=== PATIENT | male | born 1970 | race Caucasian/White ===

== ENCOUNTER 2016-07-02 02:42 | Emergency (ER) | payer OTHER ==
--- NOTE | 2016-07-02 03:57 | ED ORDER SUMMARY ---
..... Patient: MARCE NERI OrderSheet [facility] VisitID: [id number] [place] [address] 45y, M Registration Date/Time: 07/02/2016 ORDER SHEET Weight: 117.9 kg (stated) Allergies: No Known Drug Allergy GENERAL ORDERS: Culture, Strep Screen Urgent (02:51 07/02/2016 PH DO) (Ack 2:52 AMcQuoid ER Tech1) (3:16 JBullard R.N.) Monoscreen Urgent (02:51 07/02/2016) (Ack 2:52 AMcQuoid ER Tech1) (3:16 JBullard R.N.) CBC w Diff Urgent (02:57 07/02/2016) (Ack 3:04 AMcQuoid ER Tech1) (3:16 JBullard R.N.) CMP Urgent (02:57 07/02/2016) (Ack 3:04 AMcQuoid ER Tech1) (3:16 JBullard R.N.) Amylase Urgent (02:57 07/02/2016) (Ack 3:04 AMcQuoid ER Tech1) (3:16 JBullard R.N.) Lipase Urgent (02:57 07/02/2016) (Ack 3:04 AMcQuoid ER Tech1) (3:16 JBullard R.N.) MEDICATION ORDERS: Augmentin PO 875 mg (NOW) (03:49 07/02/2016) (4:14 JBullard R.N.) Albuterol Neb Tx 1 unit dose (NOW, HHN) (04:02 07/02/2016) (4:14 JBullard R.N.) IV FLUIDS: IV NS : initial bolus 1000 mL (1000 mL/hr), then 500 mL/hr for X2 (NOW) (02:57 07/02/2016 PH) (3:17 JBullard R.N.) Toradol IV 15 mg (NOW) (02:57 07/02/2016 DO) (3:17 Patrick Howard) Zofran IV 4 mg (NOW) (02:58 07/02/2016 Víctor LEVY) (3:17 Patrick Howard) Solu-MEDROL IV 125 mg (NOW) (03:55 [facility] (4:14 Patrick Howard) ORDER SHEET NOTES: [Electronically signed by Mk Rodarte R.N. (05:18 07/02/2016)] [Electronically signed by Blake Smith DO (15:04 07/02/2016)] [Electronically locked/signed by Mk Rodarte R.N. (05:18 07/02/2016)]
--- NOTE | 2016-07-02 03:57 | ED CLINICAL REPORT ---
Clinical Report - Physicians/Mid Levels [facility] [address] [place] [address] 07/02/2016 2:44 Patient: MARCE NERI Time Seen: 02:51. Arrived- By private vehicle. Historian- patient. HISTORY OF PRESENT ILLNESS Chief Complaint: SORE THROAT. Cough. This started yesterday and is still present. It was gradual in onset and has been waxing/waning. Pain described as moderate. The patient has had a moderate sore throat with pain upon swallowing. He has been able to swallow. He has had nasal congestion. No swollen face. Similar symptoms previously: Recent medical care: Not recently seen/assessed. REVIEW OF SYSTEMS No fever, diarrhea, abdominal pain, difficulty with urination or headache. No fainting episodes, skin rash or vomiting. He has had a moderate nonproductive cough . No blood tinged sputum or frankly bloody sputum. It has been similar to previous symptoms. He has had moderate difficulty breathing at rest (pt states his asthma is acting up - his typical symptoms of asthma). The patient has also had wheezing. This has been similar to previous symptoms. He has had moderately enlarged left neck lymph nodes. All systems otherwise negative, except as recorded above. PAST HISTORY Asthma. Medications: Albuterol Sulfate Inhalation. Allergies: No Known Drug Allergy. SOCIAL HISTORY Smoker- current status unknown (cigar). Occasional alcohol use. No drug use. ADDITIONAL NOTES The nursing notes have been reviewed. PHYSICAL EXAM Vital Signs: 07/02/2016 02:54 BP: 137/72. HR: 64. RR: 15. O2 saturation: 97%. Temp: 98 F. Pain level now: 210. Appearance: Alert. Anxious. Patient in mild distress. Head: Swelling of the maxilla (left submandibular gland mild hypertrophy / swelling). Normal external inspection. Eyes: Pupils equal, round and reactive to light. Conjunctivae and eyelids normal. ENT: Nasal discharge present. Mild generalized pharyngeal erythema. No right tonsillar exudate, right tonsillar abscess, right tonsillar swelling, left tonsillar exudate, left tonsillar abscess or left tonsillar swelling. No trismus present. Uvula midline. No peritonsillar mass, muffled or hoarse voice or drooling. The mucous membranes are not dry. Neck: Normal inspection. Mild right anterior neck, mild right posterior neck and mild right submandibular and moderate left anterior neck, moderate left submandibular and mild left posterior neck lymphadenopathy present. Trachea midline. Neck supple. CVS: Normal heart rate and rhythm. Heart sounds normal. Pulses normal. Respiratory: No respiratory distress. Breath sounds normal. Abdomen: Soft and nontender. Skin: Normal skin color. No rash. Normal skin turgor. Extremities: Extremities exhibit normal ROM. Extremities nontender. Neuro: Oriented X 3. No motor deficit. LABS, X-RAYS, AND EKG Laboratory Tests: Monoscreen: (VERITO: 07/02/2016 03:05) ( [facility] [place] 03:27) Final results Test Result Flag Units (Reference) MONOSCREEN NEGATIVE (NEGATIVE) CBC w Diff: (VERITO: 07/02/2016 02:55) ( [facility] [place] 03:18) Final results Test Result Flag Units (Reference) WHITE BLOOD COUNT 4.9 K/uL (4.5-11.5) RED BLOOD COUNT 5.21 M/uL (4.50-5.90) HEMOGLOBIN 14.3 gm/dL (13.5-17.5) HEMATOCRIT 44.0 % (41.0-53.0) MEAN CELL VOLUME 84 fL (80-100) MEAN CORPUSCULAR HGB 28 pg (26-34) MEAN CORPUSCULAR HGB CONC 33 g/dL (31-37) RED CELL DISTRIBUTION WIDTH 13.3 % (11.6-14.8) PLATELET COUNT 186 K/uL (150-400) NEUTROPHIL % 52.1 % (50-75) LYMPH % 34.4 % (25-40) MONO % 10.0 % (3-14) EOSINOPHIL % 2.6 % (0-4) BASOPHIL % 0.9 % (0-2) CMP: (VERITO: 07/02/2016 02:55) ( [facility] [place] 03:30) Final results Test Result Flag Units (Reference) GLUCOSE 92 mg/dL (70-110) BUN 25 H mg/dL (7-18) CREATININE 1.0 mg/dL (0.6-1.3) Estimated GFR >60 mL/min Estimated GFR- >60 mL/min Note: Persistent reduction over 3 months in eGFR<60 mL/min/1.73 m2 defines CKD. Patients with eGFR values>=60 mL/min/1.73 m2 may also have CKD if evidence ofpersistent proteinuria. Additional information may be foundat www.kidney.org. SODIUM 141 mmol/L (136-145) POTASSIUM 4.4 mmol/L (3.5-5.1) CHLORIDE 104 mmol/L (98-107) CARBON DIOXIDE 30 mmol/L (21-32) CALCIUM 8.9 mg/dL (8.5-10.1) TOTAL PROTEIN 7.5 g/dL (6.4-8.2) ALBUMIN 3.6 g/dL (3.3-5.0) BILIRUBIN, TOTAL 0.7 mg/dL (0.0-1.0) ALKALINE PHOSPHATASE 101 U/L (46-116) AST (SGOT) 35 U/L (15-37) ALT (SGPT) 50 U/L (12-78) LIPASE 237 U/L (73-393) AMYLASE 76 U/L (25-115) Culture, Strep Screen: (VERITO: 07/02/2016 02:55) ( [facility] 07/02/2016 03:34) Final results Test Result Flag Units (Reference) RAPID STREP SCREEN - THROAT DATE: 07/02/16 NEGATIVE SCREEN: RAPID STREP SCREEN NEGATIVE; CONFIRMATION TO FOLLOW . Pulse Oximetry: 07/02/2016 02:54 O2 saturation: 97%. (FIO2 - room air). Interpretation: normal. PROGRESS AND PROCEDURES Course of Care: Albuterol nebulizer treatment given. Normal Saline 1 liter IVPB given. Toradol 15 mg IVP given. Augmentin 875 mg PO given. Zofran 4 mg IVP given. Solu-Medrol 125 mg IVP given. Submandibular / anterior cervical node swelling without fluctuance or erythema, but no parotid swelling. No stridor. Epigliglotis not visibly swollen with direct visuslization with tongue blade. Lungs clear pre and post neb. Patient/family counseled. Disposition: Discharged. Condition: stable and improved. CLINICAL IMPRESSION Mild persistent asthma with an acute exacerbation. No status asthmaticus, pneumonia or hypoxemia. Acute streptococcal pharyngitis Possible acute sialoadenitis Doubt mumps. No orchitis, meningitis, encephalitis, pancreatitis or hepatitis. INSTRUCTIONS Do not work for three days. Drink plenty of fluids. Do not smoke. Seek medical help to quit smoking. Warnings: Further evaluation is necessary in order to recheck abnormal lab and obtain test results. It is very important to follow up with a physician. GENERAL WARNINGS: Return or contact your physician immediately if your condition worsens or changes unexpectedly, if not improving as expected, or if other problems arise. Your Current Medications: CONTINUE TAKING THE FOLLOWING MEDICATIONS: Albuterol Sulfate Inhalation. Prescription Medications: Hydrocodone/APAP 5mg / 325mg: take 1-2 orally every 8 hours as needed for pain. Dispense ten (10). No refill. Albuterol HFA oral inhaler: inhale 1 to 2 puffs every four to six hours as needed for difficulty breathing. Dispense one (1) unit. No refills. (with spacer) Prednisone 20 mg: take 3 orally every day for 5 days. Dispense fifteen (15). No refills. Augmentin 875 mg: take 1 tablet orally every 12 hours for 7 days. Dispense fourteen (14). No refills. Substitution is permissible. OTC Medications: Acetaminophen (available over the counter): take according to label instructions. Motrin (available over the counter): take according to label instructions. Follow-up: Follow up with your doctor in about three days. Follow-up with: Elvin Jung MD, ENT, , [facility], [address] [place] [address], [id number] Follow up in about three days if not better. (Electronically signed by Blake Smith DO 07/02/2016 15:04)
--- NOTE | 2016-07-02 03:57 | ED ORDER SUMMARY ---
..... Patient: MARCE NERI OrderSheet [facility] VisitID: [id number] [place] [address] 45y, M Registration Date/Time: 07/02/2016 ORDER SHEET Weight: 117.9 kg (stated) Allergies: No Known Drug Allergy GENERAL ORDERS: Culture, Strep Screen Urgent (02:51 07/02/2016 PH DO) (Ack 2:52 AMcQuoid ER Tech1) (3:16 JBullard R.N.) Monoscreen Urgent (02:51 07/02/2016) (Ack 2:52 AMcQuoid ER Tech1) (3:16 JBullard R.N.) CBC w Diff Urgent (02:57 07/02/2016) (Ack 3:04 AMcQuoid ER Tech1) (3:16 JBullard R.N.) CMP Urgent (02:57 07/02/2016) (Ack 3:04 AMcQuoid ER Tech1) (3:16 JBullard R.N.) Amylase Urgent (02:57 07/02/2016) (Ack 3:04 AMcQuoid ER Tech1) (3:16 JBullard R.N.) Lipase Urgent (02:57 07/02/2016) (Ack 3:04 AMcQuoid ER Tech1) (3:16 JBullard R.N.) MEDICATION ORDERS: Augmentin PO 875 mg (NOW) (03:49 07/02/2016) (4:14 JBullard R.N.) Albuterol Neb Tx 1 unit dose (NOW, HHN) (04:02 07/02/2016) (4:14 JBullard R.N.) IV FLUIDS: IV NS : initial bolus 1000 mL (1000 mL/hr), then 500 mL/hr for X2 (NOW) (02:57 07/02/2016 PH) (3:17 JBullard R.N.) Toradol IV 15 mg (NOW) (02:57 07/02/2016 DO) (3:17 Patrick Howard) Zofran IV 4 mg (NOW) (02:58 07/02/2016 Víctor LEVY) (3:17 Patrick Howard) Solu-MEDROL IV 125 mg (NOW) (03:55 07/02/2016 [facility] ) (4:14 Patrick Howard) ORDER SHEET NOTES: [Electronically signed by Mk Rodarte R.N. (05:18 07/02/2016)] [Electronically signed by Blake Smith DO (15:04 07/02/2016)] [Electronically locked/signed by Mk Rodarte R.N. (05:18 07/02/2016)]
--- NOTE | 2016-07-02 03:57 | ED NURSING NOTES ---
Clinical Report - Nurses [facility] [address] [place] [address] 07/02/2016 2:44 Patient: MARCE NERI TRIAGE Triage time 02:54. Acuity: LEVEL 4. Chief Complaint: (swollen gland on left side of neck, sore throat). Alert. No acute distress. --02:59 Laura Jay R.N. 02:54 07/02/16. BP: 137/72. HR: 64. RR: 15. O2 saturation: 97%. Temp: 98 F (oral). Pain level now: 08/07. --02:59 Laura Jay R.N. Weight: 117.9 kg stated. Height/Length: 70 inches Per Patient. BMI: 37.3. --02:55 Laura Jay R.N. Medications Albuterol Sulfate Inhalation. --02:55 Laura Jay R.N. Allergies No Known Drug Allergy. --02:55 Laura Jay R.N. History Arrived by private vehicle. Historian: patient. Onset. (about 2 days ago). PAST MEDICAL HX: Immunizations: up-to-date. SOCIAL HX: Smoker- current status unknown (cigar). Occasional alcohol use. No drug use. NUTRITIONAL RISK ASSESSMENT: The nutritional risk assessment revealed no deficiencies. FUNCTIONAL ASSESSMENT: Functional assessment: no impairments noted. --02:59 Laura Jay R.N. PROBLEMS: Asthma. --02:56 Laura Jay R.N. ADDITIONAL SURGERIES: Knee Surgery. --02:56 Laura Jay R.N. Interventions ID band on patient. To treatment room. --02:59 Laura Jay R.N. PHYSICAL ASSESSMENT Ambulatory to room. GENERAL / NEURO / PSYCH: Alert. Oriented X 4. Appears in no acute distress. HEENT: Mucous membranes are pink. RESPIRATORY: Respirations not labored. CVS: Capillary refill less than 2 seconds. SKIN: Skin is warm and dry. --02:59 Laura Jay R.N. NURSING PROGRESS NOTES Head of bed elevated. Two patient identifiers checked. Call light placed in reach. Side rails up x 1. Bed placed in lowest position. Brakes of bed on. --02:59 Laura Jay R.N. Patient ready for evaluation- chart flagged. --02:59 Laura Jay R.N. The initial plan of care for this patient has been created This plan of care was discussed with the patient. --02:59 Laura Jay R.N. 03:17 07/02/2016 Site #1 started via IV in the left forearm with an 18g angiocath, with aseptic technique and good blood return; two attempts. Blood drawn: rainbow set. Labeled in the presence of the patient and sent to the lab. Saline lock flushed with saline. --03:17 Mk Rodarte R.N. 03:17 07/02/2016 Zofran (Ondansetron HCl) IVP 4 mg given. via site #1. Allergies verified and confirmed 5 rights. IV patency established. IV site checked: no pain, redness, or swelling. IV flushed thoroughly pre- and post-medication administration. --03:17 Mk Rodarte R.N. 03:17 07/02/2016 Toradol IVP 15 mg given. via site #1. Allergies verified and confirmed 5 rights. IV patency established. IV site checked: no pain, redness, or swelling. IV flushed thoroughly pre- and post-medication administration. --03:17 Mk Rodarte R.N. 03:17 07/02/2016 Started bag #1 1000 mL IV Fluids IV NS (Saline); bolus of 1000 mL wide open via site #1. Allergies verified and confirmed 5 rights. IV patency established. IV site checked: no pain, redness, or swelling. IV flushed thoroughly pre- and post-medication administration. --03:17 Mk Rodarte R.N. 04:14 07/02/2016 Augmentin (Amoxicillin-Pot Clavulanate) PO Tablets 875 mg given. Allergies verified and confirmed 5 rights. --04:14 Mk Rodarte R.N. 04:14 07/02/2016 SOLU-MEDROL (MethylPREDNISolone Sodium Succ) IVP 125 mg given. via site #1. Allergies verified and confirmed 5 rights. IV patency established. IV site checked: no pain, redness, or swelling. IV flushed thoroughly pre- and post-medication administration. --04:14 Mk Rodarte R.N. 04:14 07/02/2016 Albuterol Neb TX 1 unit dose given. Given by the nurse. Allergies verified and confirmed 5 rights. --04:14 Mk Rodarte R.N. DISPOSITION / DISCHARGE 04:52 07/02/2016 Site #1 removed upon discharge. Pressure dressing applied. --05:17 Mk Rodarte R.N. Departure time: 0500. Condition at departure: improved. No learning barriers present. Discharge instructions provided and reviewed with the patient. Reviewed warnings. Reviewed medication(s). Treatments reviewed. Activity restrictions reviewed. Work note given. Patient verbalized understanding. Written instructions provided in Congolese. The patient was discharged by the physician. He was discharged home and unaccompanied at time of discharge. He left the Emergency Department ambulatory and via private vehicle. Patient driving. FALL RISK ASSESSMENT: Fall risk assessment completed. No fall risk identified. --05:18 Mk Rodarte R.N. 05:17 07/02/16. BP: 130/75. HR: 88. RR: 16. O2 saturation: 98%. Temp: 98 F. Pain level now 0/10. --05:18 Mk Rodarte R.N. Locked/Released at 07/02/2016 5:18 by Mk Rodarte R.N.
--- NOTE | 2016-07-02 15:05 | ED DISCHARGE INSTRUCTIONS ---
Patient: MARCE NERI [facility] VisitID: [id number] [place] [address] 45y, M Registration Date/Time: 07/02/2016 Mild persistent asthma with an acute exacerbation. No status asthmaticus, pneumonia or hypoxemia. Acute streptococcal pharyngitis INSTRUCTIONS Do not work for three days. Drink plenty of fluids. Do not smoke. Seek medical help to quit smoking. Warnings: Further evaluation is necessary in order to recheck abnormal lab and obtain test results. It is very important to follow up with a physician. GENERAL WARNINGS: Return or contact your physician immediately if your condition worsens or changes unexpectedly, if not improving as expected, or if other problems arise. Your Current Medications: CONTINUE TAKING THE FOLLOWING MEDICATIONS: Albuterol Sulfate Inhalation. Prescription Medications: Hydrocodone/APAP 5mg / 325mg: take 1-2 orally every 8 hours as needed for pain. Dispense ten (10). No refill. Albuterol HFA oral inhaler: inhale 1 to 2 puffs every four to six hours as needed for difficulty breathing. Dispense one (1) unit. No refills. (with spacer) Prednisone 20 mg: take 3 orally every day for 5 days. Dispense fifteen (15). No refills. Augmentin 875 mg: take 1 tablet orally every 12 hours for 7 days. Dispense fourteen (14). No refills. Substitution is permissible. OTC Medications: Acetaminophen (available over the counter): take according to label instructions. Motrin (available over the counter): take according to label instructions. Follow-up: Follow up with your doctor in about three days. Follow-up with: Elvin Jung MD, ENT, , [facility], [address] [place] [address], [facility], [id number] Follow up in about three days if not better. ADDITIONAL INFORMATION Pharyngitis (Sore Throat),Report Pending Pharyngitis (sore throat) is often due to a virus, but can also be caused by thestrepbacteria. This is calledstrep throat. Both viral and strep infection can cause throat pain that is worse when swallowing, aching all over with headache and fever. Both types of infections are contagious. They may be spread by coughing, kissing or touching others after touching your mouth or nose. A test has been done to determine whether or not you have strep throat. Call this facility as directed for the result. If it is positive for strep infection you will need to take antibiotics. A prescription can be called in to your pharmacy at that time. If the test is negative, you probably have a viral pharyngitis and it will not require antibiotic treatment. Home Care: If your symptoms are severe, rest at home for the first 2-3 days. If you are told that your test is positive for strep, you should be off work and school for the first two days of antibiotic treatment. After that, you will no longer be contagious. Children: Use acetaminophen (Tylenol) for fever, fussiness or discomfort. In infants over six months of age, you may use ibuprofen (Children's Motrin) instead of Tylenol. [NOTE: If your child has chronic liver or kidney disease or ever had a stomach ulcer or GI bleeding, talk with your doctor before using these medicines.] (Aspirin should never be used in anyone under 18 years of age who is ill with a fever. It may cause severe liver damage.)Adults: You may use acetaminophen (Tylenol) or ibuprofen (Motrin, Advil) to control pain or fever, unless another medicine was prescribed for this. [NOTE: If you have chronic liver or kidney disease or ever had a stomach ulcer or GI bleeding, talk with your doctor before using these medicines.] Throat lozenges or sprays (Chloraseptic and others), or gargling with warm salt water will reduce throat pain. Dissolve 1/2 teaspoon of salt in 1 glass of warm water. This is especially useful just before meals. Follow Up with your doctor as advised by our staff if you are not improving over the next week. Get Prompt Medical Attention if any of the following occur: Fever of 100.4F (38C) oral or higher, not better with fever medication New or worsening ear pain, sinus pain or headache Painful lumps in the back of your neck Unable to swallow liquids or open your mouth wide due to throat pain Trouble breathing or noisy breathing Muffled voice New rash Salivary Gland Infection Salivary glands make saliva in response to food in your mouth. Saliva is mostly water, but also has minerals and proteins that help break down food and keep the mouth and teeth healthy. There are three pairs of salivary glands: Parotid glands (in front of the ear) Submandibular glands (below the jaw) Sublingual glands (below the tongue) Each gland has a duct (channel) that allows saliva to flow from the gland into the mouth. The salivary gland can become infected as a result of the salivary duct being blocked. This blockage may be due to a stone, narrowing of the duct, or poor salivary flow due to dehydration. Chronic illness or certain medications can also increase the risk of infection. A blocked salivary gland is at risk of infection. This causes severe pain in the gland with redness in the skin over the gland. The gland is tender to the touch and there may be fever. Symptoms are worse during eating since food stimulates the flow of saliva. Even the smell or thought of food can cause symptoms to appear. Diagnosis of a salivary gland blockage with infection requires an X-ray, CT-scan, ultrasound or injection of dye into the salivary duct. If a stone is discovered, it may be removed by massage of the duct, or a procedure to remove the stone manually. Antibiotics are used to treat the infection. Sometimes it is necessary to drain the infection with a small surgical procedure. Home Care: Drink 6-8 glasses of fluid per day (water, juices, tea, soup, etc.) to keep well-hydrated. If you smoke, quit smoking. Maintain good dental hygiene: Spring your teeth, floss, and use mouthwash. If it is determined that no stone is present, but you have gland swelling during meals, there may be sludge blocking the duct, or the duct may be narrowed. Gently massaging the gland and sucking on lemon drops after a meal may help reduce the symptoms. Take antibiotics as directed until you have finished them all, even if you are feeling better after only a few days. Follow Up with your doctor or as advised by our staff. Get Prompt Medical Attention if any of the following occur: Increasing pain or swelling in the gland Fever over 100.5F (38.0C) that persists after two days of antibiotics Increasing redness over the gland Asthma [Adult] Asthma is a disease where the small air passages within the lung go into spasm and restrict the flow of air. Inflammation and swelling of the airways cause further restriction. During an acute asthma attack, these factors cause difficulty breathing, wheezing, cough and chest tightness. An asthma attack can be triggered by many things. Common triggers include the common cold, bronchitis, pneumonia, irritants such as smoke or pullutants in the air, emotional upset and heavy exercise. Inmany adults with asthma, allergies todust, mold, pollen and animal dander can cause an asthma attack. Skipping doses of daily asthma medicine can also bring on an asthma attack. Asthma can be controlled with proper medicines and decreased exposure to known allergens. Home Care: Take prescribed medicine exactly at the times advised. If you have a hand-held inhaler or aerosol breathing medicine, do not use it more than once every four hours, unless told to do so. (If you need this medicine more than every four hours, you may need to return to the Emergency Room.) If prescribed an antibiotic or prednisone, take all of the medicine even if you are feeling better after a few days. Do not smoke. Avoid being exposed to the smoke of others. Some persons with asthma have worsening of their symptoms when they take aspirin and non-steroidal medicines like ibuprofen (Motrin, Advil) and naproxen (Aleve, Naprosyn). Talk to your doctor if you think this may apply to you. Acetaminophen (Tylenol)should be safe to use. Follow Up with your doctor, or as advised by our staff. Always bring all of your current medicines with you for your doctor to see. If you do not already have one, talk to your doctor about developing a personalized "Asthma Action Plan." [NOTE: A pneumococcal vaccine and yearly flu shot (every fall) are recommended. Ask your doctor about this.] Get Prompt Medical Attention if any of the following occur: Increased wheezing or shortness of breath Need to use your inhalers more often than usual without relief Fever of 100.4F (38C) or higher, or as directed by your healthcare provider Coughing up lots of dark-colored or bloody sputum (mucus) Chest pain with each breath You do not start to improve within 24 hours Call 911 If Any Of The Following Occur : Trouble walking or talking because of shortness of breath If you use a peak flow meter andyou are still in the red zone (less than 50 percent) 15 minutes after using inhaler medication Lips or fingernails turning lewis or blue How To Quit Smoking Smoking is one of the hardest habits to break. About half of all those who have ever smoked have been able to quit, and most of those (about 70%) who still smoke want to quit. Here are some of the best ways to stop smoking. Keep Trying: It takes most smokers about 8 tries before they are finally able to fully quit. So, the more often you try and fail, the better your chance of quitting the next time! So, don't give up! Go Cold [place]: Most ex-smokers quit cold turkey. Trying to cut back gradually doesn't seem to work as well, perhaps because it continues the smoking habit. Also, it is possible to fool yourself by inhaling more while smoking fewer cigarettes. This results in the same amount of nicotine in your body! Get Support: Support programs can make an important difference, especially for the heavy smoker. These groups offer lectures, methods to change your behavior and peer support. Call the free national Quitline for more information. 408-SEBJ-DXW (303-079-9765). Low-cost or free programs are offered by many hospitals, local chapters of the [employer] (003-343-3093) and the [employer] (423-608-8029). Support at home is important too. Non-smokers can help by offering praise and encouragement. If the smoker fails to quit, encourage them to try again! Nkwg-Spb-Qznforl Medicines: For those who can't quit on their own, Nicotine Replacement Therapy (NRT) may make quitting much easier. Certain aids such as the nicotine patch, gum and lozenge are available without a prescription. However, it is best to use these under the guidance of your doctor. The skin patch provides a steady supply of nicotine to the body. Nicotine gum and lozenge gives temporary bursts of low levels of nicotine. Both methods take the edge off the craving for cigarettes. WARNING: If you feel symptoms of nicotine overdose, such as nausea, vomiting, dizziness, weakness, or fast heartbeat, stop using these and see your doctor. Prescription Medicines: After evaluating your smoking patterns and prior attempts at quitting, your doctor may offer a prescription medicine such as bupropion (Zyban, Wellbutrin), varenicline (Chantix, Champix), a niocotine inhaler or nasal spray. Each has its unique advantage and side effects which your doctor can review with you. Health Benefits Of Quitting: The benefits of quitting start right away and keep improving the longer you go without smokin minutes: blood pressure and pulse return to normal 8 hours: oxygen levels return to normal 2 days: ability to smell and taste begins to improve as damaged nerves start to regrow 2-3 weeks: circulation and lung function improves 1-9 months: decreased cough, congestion and shortness of breath; less tired 1 year: risk of heart attack decreases by half 5 years: risk of lung cancer decreases by half; risk of stroke becomes the same as a non-smoker For information about how to quit smoking, visit the following links: [employer] [place] , Clearing the Air, Quit Smoking Today - an online booklet. http://www.smokefree.gov/pubs/clearing_the_air.pdf Smokefree.gov http://smokefree.gov/ QuitNet http://www.quitnet.com/ Hydrocodone Bitartrate, Acetaminophen Oral tablet What is this medicine? ACETAMINOPHEN; HYDROCODONE (a set a WILDER chhaya fen; dereck droe KOE done) is a pain reliever. It is used to treat mild to moderate pain. How should I use this medicine? Take this medicine by mouth. Swallow it with a full glass of water. Follow the directions on the prescription label. If the medicine upsets your stomach, take the medicine with food or milk. Do not take more than you are told to take. Talk to your general utility machine operator regarding the use of this medicine in children. This medicine is not approved for use in children. What side effects may I notice from receiving this medicine? Side effects that you should report to your doctor or health critical care unit nurse as soon as possible: allergic reactions like skin rash, itching or hives, swelling of the face, lips, or tongue breathing problems confusion feeling faint or lightheaded, falls stomach pain yellowing of the eyes or skin Side effects that usually do not require medical attention (report to your doctor or health critical care unit nurse if they continue or are bothersome): nausea, vomiting stomach upset What may interact with this medicine? alcohol antihistamines isoniazid medicines for depression, anxiety, or psychotic disturbances medicines for sleep muscle relaxants naltrexone narcotic medicines (opiates) for pain phenobarbital ritonavir tramadol What if I miss a dose? If you miss a dose, take it as soon as you can. If it is almost time for your next dose, take only that dose. Do not take double or extra doses. Where should I keep my medicine? Keep out of the reach of children. This medicine can be abused. Keep your medicine in a safe place to protect it from theft. Do not share this medicine with anyone. Selling or giving away this medicine is dangerous and against the law. Store at room temperature between 15 and 30 degrees C (59 and 86 degrees F). Protect from light. Keep container tightly closed. Throw away any unused medicine after the expiration date. Discard unused medicine and used packaging carefully. Pets and children can be harmed if they find used or lost packages. What should I tell my health care provider before I take this medicine? They need to know if you have any of these conditions: brain tumor Crohn's disease, inflammatory bowel disease, or ulcerative colitis drink more than 3 alcohol-containing drinks per day drug abuse or addiction head injury heart or circulation problems kidney disease or problems going to the bathroom liver disease lung disease, asthma, or breathing problems an unusual or allergic reaction to acetaminophen, hydrocodone, other opioid analgesics, other medicines, foods, dyes, or preservatives or trying to get breast-feeding What should I watch for while using this medicine? Tell your doctor or health critical care unit nurse if your pain does not go away, if it gets worse, or if you have new or a different type of pain. You may develop tolerance to the medicine. Tolerance means that you will need a higher dose of the medicine for pain relief. Tolerance is normal and is expected if you take the medicine for a long time. Do not suddenly stop taking your medicine because you may develop a severe reaction. Your body becomes used to the medicine. This does NOT mean you are addicted. Addiction is a behavior related to getting and using a drug for a non-medical reason. If you have pain, you have a medical reason to take pain medicine. Your doctor will tell you how much medicine to take. If your doctor wants you to stop the medicine, the dose will be slowly lowered over time to avoid any side effects. You may get drowsy or dizzy when you first start taking the medicine or change doses. Do not drive, use machinery, or do anything that may be dangerous until you know how the medicine affects you. Stand or sit up slowly. There are different types of narcotic medicines (opiates) for pain. If you take more than one type at the same time, you may have more side effects. Give your health care provider a list of all medicines you use. Your doctor will tell you how much medicine to take. Do not take more medicine than directed. Call emergency for help if you have problems breathing. The medicine will cause constipation. Try to have a bowel movement at least every 2 to 3 days. If you do not have a bowel movement for 3 days, call your doctor or health critical care unit nurse. Too much acetaminophen can be very dangerous. Do not take Tylenol (acetaminophen) or medicines that contain acetaminophen with this medicine. Many non-prescription medicines contain acetaminophen. Always read the labels carefully. Albuterol Sulfate Pressurized inhalation, suspension What is this medicine? ALBUTEROL (al BYOO ter ole) is a bronchodilator. It helps open up the airways in your lungs to make it easier to breathe. This medicine is used to treat and to prevent bronchospasm. How should I use this medicine? This medicine is for inhalation through the mouth. Follow the directions on your prescription label. Take your medicine at regular intervals. Do not use more often than directed. Make sure that you are using your inhaler correctly. Ask you doctor or health care provider if you have any questions. Talk to your general utility machine operator regarding the use of this medicine in children. Special care may be needed. What side effects may I notice from receiving this medicine? Side effects that you should report to your doctor or health critical care unit nurse as soon as possible: allergic reactions like skin rash, itching or hives, swelling of the face, lips, or tongue breathing problems chest pain feeling faint or lightheaded, falls high blood pressure irregular heartbeat fever muscle cramps or weakness pain, tingling, numbness in the hands or feet vomiting Side effects that usually do not require medical attention (report to your doctor or health critical care unit nurse if they continue or are bothersome): cough difficulty sleeping headache nervousness or trembling stomach upset stuffy or runny nose throat irritation unusual taste What may interact with this medicine? anti-infectives like chloroquine and pentamidine caffeine cisapride diuretics medicines for colds medicines for depression or for emotional or psychotic conditions medicines for weight loss including some herbal products methadone some antibiotics like clarithromycin, erythromycin, levofloxacin, and linezolid some heart medicines steroid hormones like dexamethasone, cortisone, hydrocortisone theophylline thyroid hormones What if I miss a dose? If you miss a dose, use it as soon as you can. If it is almost time for your next dose, use only that dose. Do not use double or extra doses. Where should I keep my medicine? Keep out of the reach of children. Store at room temperature between 15 and 30 degrees C (59 and 86 degrees F). The contents are under pressure and may burst when exposed to heat or flame. Do not freeze. This medicine does not work as well if it is too cold. Throw away any unused medicine after the expiration date. Inhalers need to be thrown away after the labeled number of puffs have been used or by the expiration date; whichever comes first. Ventolin HFA should be thrown away 12 months after removing from foil pouch. Check the instructions that come with your medicine. What should I tell my health care provider before I take this medicine? They need to know if you have any of the following conditions: diabetes heart disease or irregular heartbeat high blood pressure pheochromocytoma seizures thyroid disease an unusual or allergic reaction to albuterol, levalbuterol, sulfites, other medicines, foods, dyes, or preservatives or trying to get breast-feeding What should I watch for while using this medicine? Tell your doctor or health critical care unit nurse if your symptoms do not improve. Do not use extra albuterol. If your asthma or bronchitis gets worse while you are using this medicine, call your doctor right away. If your mouth gets dry try chewing sugarless gum or sucking hard candy. Drink water as directed. Prednisone Oral tablet What is this medicine? PREDNISONE (PRED ni sone) is a corticosteroid. It is commonly used to treat inflammation of the skin, joints, lungs, and other organs. Common conditions treated include asthma, allergies, and arthritis. It is also used for other conditions, such as blood disorders and diseases of the adrenal glands. How should I use this medicine? Take this medicine by mouth with a glass of water. Follow the directions on the prescription label. Take this medicine with food. If you are taking this medicine once a day, take it in the morning. Do not take more medicine than you are told to take. Do not suddenly stop taking your medicine because you may develop a severe reaction. Your doctor will tell you how much medicine to take. If your doctor wants you to stop the medicine, the dose may be slowly lowered over time to avoid any side effects. Talk to your general utility machine operator regarding the use of this medicine in children. Special care may be needed. What side effects may I notice from receiving this medicine? Side effects that you should report to your doctor or health critical care unit nurse as soon as possible: allergic reactions like skin rash, itching or hives, swelling of the face, lips, or tongue changes in emotions or moods changes in vision depressed mood eye pain fever or chills, cough, sore throat, pain or difficulty passing urine increased thirst swelling of ankles, feet Side effects that usually do not require medical attention (report to your doctor or health critical care unit nurse if they continue or are bothersome): confusion, excitement, restlessness headache nausea, vomiting skin problems, acne, thin and shiny skin trouble sleeping weight gain What may interact with this medicine? Do not take this medicine with any of the following medications: metyrapone mifepristone This medicine may also interact with the following medications: aminoglutethimide amphotericin B aspirin and aspirin-like medicines barbiturates certain medicines for diabetes, like glipizide or glyburide cholestyramine cholinesterase inhibitors cyclosporine digoxin diuretics ephedrine female hormones, like estrogens and control pills isoniazid ketoconazole NSAIDS, medicines for pain and inflammation, like ibuprofen or naproxen phenytoin rifampin toxoids vaccines warfarin What if I miss a dose? If you miss a dose, take it as soon as you can. If it is almost time for your next dose, talk to your doctor or health critical care unit nurse. You may need to miss a dose or take an extra dose. Do not take double or extra doses without advice. Where should I keep my medicine? Keep out of the reach of children. Store at room temperature between 15 and 30 degrees C (59 and 86 degrees F). Protect from light. Keep container tightly closed. Throw away any unused medicine after the expiration date. What should I tell my health care provider before I take this medicine? They need to know if you have any of these conditions: Denilson's syndrome diabetes glaucoma heart disease high blood pressure infection (especially a virus infection such as chickenpox, cold sores, or herpes) kidney disease liver disease mental illness myasthenia gravis osteoporosis seizures stomach or intestine problems thyroid disease an unusual or allergic reaction to lactose, prednisone, other medicines, foods, dyes, or preservatives or trying to get breast-feeding What should I watch for while using this medicine? Visit your doctor or health critical care unit nurse for regular checks on your progress. If you are taking this medicine over a prolonged period, carry an identification card with your name and address, the type and dose of your medicine, and your doctor's name and address. This medicine may increase your risk of getting an infection. Tell your doctor or health critical care unit nurse if you are around anyone with measles or chickenpox, or if you develop sores or blisters that do not heal properly. If you are going to have surgery, tell your doctor or health critical care unit nurse that you have taken this medicine within the last twelve months. Ask your doctor or health critical care unit nurse about your diet. You may need to lower the amount of salt you eat. This medicine may affect blood sugar levels. If you have diabetes, check with your doctor or health critical care unit nurse before you change your diet or the dose of your diabetic medicine. Amoxicillin Trihydrate, Clavulanate Potassium Oral tablet What is this medicine? AMOXICILLIN; CLAVULANIC ACID (a mox i RENITA in; CHERYL chance ic id) is a penicillin antibiotic. It is used to treat certain kinds of bacterial infections. It will not work for colds, flu, or other viral infections. How should I use this medicine? Take this medicine by mouth with a full glass of water. Follow the directions on the prescription label. Take at the start of a meal. Do not crush or chew. If the tablet has a score line, you may cut it in half at the score line for easier swallowing. Take your medicine at regular intervals. Do not take your medicine more often than directed. Take all of your medicine as directed even if you think you are better. Do not skip doses or stop your medicine early. Talk to your general utility machine operator regarding the use of this medicine in children. Special care may be needed. What side effects may I notice from receiving this medicine? Side effects that you should report to your doctor or health critical care unit nurse as soon as possible: allergic reactions like skin rash, itching or hives, swelling of the face, lips, or tongue breathing problems dark urine fever or chills, sore throat redness, blistering, peeling or loosening of the skin, including inside the mouth seizures trouble passing urine or change in the amount of urine unusual bleeding, bruising unusually weak or tired white patches or sores in the mouth or throat Side effects that usually do not require medical attention (report to your doctor or health critical care unit nurse if they continue or are bothersome): diarrhea dizziness headache nausea, vomiting stomach upset vaginal or anal irritation What may interact with this medicine? allopurinol anticoagulants control pills methotrexate probenecid What if I miss a dose? If you miss a dose, take it as soon as you can. If it is almost time for your next dose, take only that dose. Do not take double or extra doses. Where should I keep my medicine? Keep out of the reach of children. Store at room temperature below 25 degrees C (77 degrees F). Keep container tightly closed. Throw away any unused medicine after the expiration date. What should I tell my health care provider before I take this medicine? They need to know if you have any of these conditions: bowel disease, like colitis kidney disease liver disease mononucleosis an unusual or allergic reaction to amoxicillin, penicillin, cephalosporin, other antibiotics, clavulanic acid, other medicines, foods, dyes, or preservatives or trying to get breast-feeding What should I watch for while using this medicine? Tell your doctor or health critical care unit nurse if your symptoms do not improve. Do not treat diarrhea with over the counter products. Contact your doctor if you have diarrhea that lasts more than 2 days or if it is severe and watery. If you have diabetes, you may get a false-positive result for sugar in your urine. Check with your doctor or health critical care unit nurse. control pills may not work properly while you are taking this medicine. Talk to your doctor about using an extra method of control. You have been given the following additional information: Pharyngitis, Report Pending Salivary Gland Infection Asthma, Acute (Adult) Smoking Cessation Hydrocodone Bitartrate, Acetaminophen Oral tablet Albuterol Sulfate Pressurized inhalation, suspension Prednisone Oral tablet Amoxicillin Trihydrate, Clavulanate Potassium Oral tablet Do not work for three days. (Electronically signed by Blake Smith DO 07/02/2016 15:04)
--- NOTE | 2016-07-02 15:05 | ED MAR SUMMARY ---
..... Medication Administration Record [facility] [address] [place] [address] Patient: MARCE NERI Visit ID: [id number] 45y, M Weight: 117.9 kg Height/Length: 70 in BMI: 37.3 ALLERGIES: No Known Drug Allergy Start 03:07/02/2016 Mk Rodarte R.N. Medication Administered: IV NS (SALINE), Dose: IV Fluids, Bolus: 1000 mL wide open, Dispensed: 1000 mL bag, Site: #1 left forearm. Medication Ordered: IV NS : initial bolus 1000 mL (1000 mL/hr), then 500 mL/hr for X2 (NOW). Given 03:07/02/2016 Mk Rodarte R.N. Medication Administered: TORADOL [IVP], Dose: 15 mg IVP, Site: #1 left forearm. Medication Ordered: Toradol IV 15 mg (NOW). Given 03:07/02/2016 Mk Rodarte R.N. Medication Administered: ZOFRAN [IVP] (ONDANSETRON HCL), Dose: 4 mg IVP, Site: #1 left forearm. Medication Ordered: Zofran IV 4 mg (NOW). Given 04:07/02/2016 Mk Rodarte R.N. Medication Administered: AUGMENTIN [PO] (AMOXICILLIN-POT CLAVULANATE), Dose: 875 mg Tablets PO. Medication Ordered: Augmentin PO 875 mg (NOW). Given 04:07/02/2016 Mk Rodarte R.N. Medication Administered: SOLU-MEDROL [IVP] (METHYLPREDNISOLONE SODIUM SUCC), Dose: 125 mg IVP, Site: #1 left forearm. Medication Ordered: Solu-MEDROL IV 125 mg (NOW). Given :07/02/2016 Mk Rodarte R.N. Medication Administered: ALBUTEROL [NEB TX], Dose: 1 unit dose Neb TX. Medication Ordered: Albuterol Neb Tx 1 unit dose (NOW, [facility]).
--- NOTE | 2016-07-02 15:05 | ED MED RECONCILIATION SUMMARY ---
Patient: MARCE NERI Medication Reconciliation Report [facility] VisitID: [id number] [place] [address] 45y, M Registration Date/Time: 07/02/2016 Weight: 117.9 kg Height/Length: 70 in. BMI: 37.3 ALLERGIES: No Known Drug Allergy The patient's Home Medications are listed below: CONTINUE TAKING THE FOLLOWING MEDICATIONS: Albuterol Sulfate Inhalation The source(s) of the original Home Medication information: Not obtained. The following Medications were given to the patient in the Emergency Department: Zofran [IVP] IVP 4 mg, administered: 07/02/2016 3:17:00 AM Toradol [IVP] IVP 15 mg, administered: 07/02/2016 3:17:00 AM IV NS IV Fluids bolus 1000 mL wide open, administered: 07/02/2016 3:17:00 AM Augmentin [PO] PO 875 mg, administered: 07/02/2016 4:14:00 AM SOLU-MEDROL [IVP] IVP 125 mg, administered: 07/02/2016 4:14:00 AM Albuterol [Neb Tx] Neb TX 1 unit dose, administered: 07/02/2016 4:14:00 AM The following Medications were prescribed to the patient: Acetaminophen (available over the counter): take according to label instructions. -- Blake Smith DO Motrin (available over the counter): take according to label instructions. -- Blake Smith DO Hydrocodone/APAP 5mg / 325mg: take 1-2 orally every 8 hours as needed for pain. Dispense ten (10). No refill. -- Blake Smith DO Albuterol HFA oral inhaler: inhale 1 to 2 puffs every four to six hours as needed for difficulty breathing. Dispense one (1) unit. No refills.(with spacer) -- Blake Smith DO Prednisone 20 mg: take 3 orally every day for 5 days. Dispense fifteen (15). No refills. -- Blake Smith DO Augmentin 875 mg: take 1 tablet orally every 12 hours for 7 days. Dispense fourteen (14). No refills. Substitution is permissible. -- Blake Smith, DO
--- NOTE | 2016-07-02 15:05 | ED MED RECONCILIATION SUMMARY ---
Patient: MARCE NERI Medication Reconciliation Report [facility] VisitID: [id number] [place] [address] 45y, M Registration Date/Time: 07/02/2016 Weight: 117.9 kg Height/Length: 70 in. BMI: 37.3 ALLERGIES: No Known Drug Allergy The patient's Home Medications are listed below: CONTINUE TAKING THE FOLLOWING MEDICATIONS: Albuterol Sulfate Inhalation The source(s) of the original Home Medication information: Not obtained. The following Medications were given to the patient in the Emergency Department: Zofran [IVP] IVP 4 mg, administered: 07/02/2016 3:17:00 AM Toradol [IVP] IVP 15 mg, administered: 07/02/2016 3:17:00 AM IV NS IV Fluids bolus 1000 mL wide open, administered: 07/02/2016 3:17:00 AM Augmentin [PO] PO 875 mg, administered: 07/02/2016 4:14:00 AM SOLU-MEDROL [IVP] IVP 125 mg, administered: 07/02/2016 4:14:00 AM Albuterol [Neb Tx] Neb TX 1 unit dose, administered: 07/02/2016 4:14:00 AM The following Medications were prescribed to the patient: Acetaminophen (available over the counter): take according to label instructions. -- Blake Smith DO Motrin (available over the counter): take according to label instructions. -- Blake Smith DO Hydrocodone/APAP 5mg / 325mg: take 1-2 orally every 8 hours as needed for pain. Dispense ten (10). No refill. -- Blake Smith DO Albuterol HFA oral inhaler: inhale 1 to 2 puffs every four to six hours as needed for difficulty breathing. Dispense one (1) unit. No refills.(with spacer) -- Blake Smith DO Prednisone 20 mg: take 3 orally every day for 5 days. Dispense fifteen (15). No refills. -- Blake Smith DO Augmentin 875 mg: take 1 tablet orally every 12 hours for 7 days. Dispense fourteen (14). No refills. Substitution is permissible. -- Blake Smith, DO
--- NOTE | 2016-07-02 15:05 | ED MAR SUMMARY ---
..... Medication Administration Record [facility] [address] [place] [place] [address] Patient: MARCE NERI Visit ID: [id number] 45y, M Weight: 117.9 kg Height/Length: 70 in BMI: 37.3 ALLERGIES: No Known Drug Allergy Start 03:07/02/2016 Mk Rodarte R.N. Medication Administered: IV NS (SALINE), Dose: IV Fluids, Bolus: 1000 mL wide open, Dispensed: 1000 mL bag, Site: #1 left forearm. Medication Ordered: IV NS : initial bolus 1000 mL (1000 mL/hr), then 500 mL/hr for X2 (NOW). Given 03:07/02/2016 Mk Rodarte R.N. Medication Administered: TORADOL [IVP], Dose: 15 mg IVP, Site: #1 left forearm. Medication Ordered: Toradol IV 15 mg (NOW). Given 03:07/02/2016 Mk Rodarte R.N. Medication Administered: ZOFRAN [IVP] (ONDANSETRON HCL), Dose: 4 mg IVP, Site: #1 left forearm. Medication Ordered: Zofran IV 4 mg (NOW). Given 04:07/02/2016 Mk Rodarte R.N. Medication Administered: AUGMENTIN [PO] (AMOXICILLIN-POT CLAVULANATE), Dose: 875 mg Tablets PO. Medication Ordered: Augmentin PO 875 mg (NOW). Given 04:07/02/2016 Mk Rodarte R.N. Medication Administered: SOLU-MEDROL [IVP] (METHYLPREDNISOLONE SODIUM SUCC), Dose: 125 mg IVP, Site: #1 left forearm. Medication Ordered: Solu-MEDROL IV 125 mg (NOW). Given :07/02/2016 Mk Rodarte R.N. Medication Administered: ALBUTEROL [NEB TX], Dose: 1 unit dose Neb TX. Medication Ordered: Albuterol Neb Tx 1 unit dose (NOW, [facility]).
== END 2016-07-02 05:00 | disposition home or self-care (01) ==
LOC: ED SRH 02:42
DX: J45.901 Unspecified asthma with (acute) exacerbation (principal); J02.0 Streptococcal pharyngitis
CPT/HCPCS: 90100; 90154; 90159; 92235; 92530; 95059; 98370

== ENCOUNTER → 2016-08-06 | Outpatient (CLI) | payer OTHER ==
--- NOTE | 2016-08-06 13:19 | DIAGNOSTIC IMAGING REPORT ---
PROCEDURE: XR THORACIC SPINE 3 VIEWS INDICATION: ACUT LEFT-SIDED THORACIC BACK PAIN TECHNIQUE: Three views. COMPARISON: None. FINDINGS: Osseous structures and disc spaces are normal. No evidence of an acute process or fracture. There is a spondylosis at C5-6. IMPRESSION: 1. 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 2. 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
== END ==
LOC: XR SRH 12:49
DX: M54.6 Pain in thoracic spine (principal); M47.812 Spondylosis without myelopathy or radiculopathy, cervical region